=== PATIENT | female | born 1960 | race Caucasian/White ===

== ENCOUNTER 2024-07-06 07:28 | Outpatient (CLI) | payer MEDICARE, SELFPAY ==
--- NOTE | ~2024-07-06 | US_ITS ---
EXAMINATION: US abdomen limited DATE: 07/06/2024 08:11 INDICATION: Other specified abnormal findings of blood chemistry. Abnormal liver function tests. TECHNIQUE: Multiple grayscale and Doppler ultrasound images of the abdomen were obtained. COMPARISON: None FINDINGS: The visualized portions of the head, body, and tail of the pancreas are normal. There is di ffuse hepatic steatosis. There is liver surface nodularity. There is normal flow in main portal vein. The gallbladder is normal in size. No gallstones or gallbladder wall thickening. There is no sonogra phic Flynn sign. The common duct is normal and measures 4 mm. IMPRESSION: 1. Diffuse hepatic steatosis with liver surface nodularity suspicious for cirrhosis. Reviewed, dictated and finalized at location A. ING PRESS OPERATOR IMPRESSION: 1. Diffuse hepatic steatosis with liver surface nodularity suspicious for cirrh osis.
== END 2024-07-06 07:29 | disposition home or self-care (01) ==
LOC: MICIMG 07:28
PROVIDERS: PCP Family Medicine; Visit Provider Family Medicine
DX: R79.89 Other specified abnormal findings of blood chemistry (principal); K76.0 Fatty (change of) liver, not elsewhere classified
CPT/HCPCS: 76705

== ENCOUNTER 2024-07-09 09:38 | Emergency (ER) | payer MEDICARE, SELFPAY ==
--- NOTE | 2024-07-09 09:39 | ED_ITS ---
HPI - URI/Sore Throat General Chief Complaint: Upper Respiratory Infection Stated Complaint: Sinus Time Seen by Provider: 07/09/24 09:38 Source: patient Mode of arrival: ambulatory Limitations: no limitations History of Present Illness HPI Narrative: Shirley is a 63-year-old female patient presenting to the clinic today with complaints of sinus congestion, cough, sore throat x5 days. She reports no known fever or chills. Denies any chest pain or shortness of breath. MD elicited complaint: cough, sore throat and nasal congestion Related Data Home Medications ?Medication ?Instructions ?Recorded ?Confirmed ?Last Taken ?Type levothyroxine 25 mcg tablet 25 mcg PO DAILY 06/21/24 06/21/24 Unknown History lisinopril 20 mg tablet 20 mg PO DAILY 06/21/24 06/21/24 Unknown History meclizine 12.5 mg tablet 12.5 mg PO TID PRN 06/21/24 06/21/24 Unknown History omeprazole 40 mg capsule,delayed 40 mg PO DAILY 06/21/24 06/21/24 Unknown History release paroxetine HCl 30 mg tablet 30 mg PO DAILY 06/21/24 06/21/24 Unknown History Allergies Allergy/AdvReac Type Severity Reaction Status Date / Time No Known Allergies Allergy Verified 07/09/24 09:43 Review of Systems Review of Systems: Pertinent positives per HPI. Patient denies any fever, chills, rash, headache, visual changes, dizziness, shortness of breath, chest pain, palpitations, nausea, vomiting, diarrhea, constipation, abdominal pain, or any urinary issues. [facility] Surgical History Surgical History Hx of section 1984, 1988, 1991 Family History Family History Mother Cerebrovascular accident Grandparent Cerebrovascular accident Diabetes mellitus Social History Social History Smoking status: Never smoker Alcohol intake: current Alcohol use details: 1-4 per week Substance use: never Do You Feel Safe in your Home?: Yes Lack of Transportation: No Lack of Food: Never True Current Housing: I Have Housing Concerned About Future Housing: No Difficulty Paying Gas/Electric Bills: No Difficulty Paying for Meds: No Currently Unemployed: No Education: Bachelor's Degree Difficulty w/ Childcare or Family Care: No Agree to blood products: Yes Comments At the time of my signature, I reviewed and agree with the nursing past medical, surgical, social, and family history. There is no relevant family history pertinent to the patient complaint. Exam 2 Narrative: General: Well-developed, well nourished, in no apparent distress Head: Normocephalic, atraumatic Eyes: Pupils equally round and reactive to light bilaterally, EOM intact, sclera and conjunctive clear, no discharge, lids normal Ears: TMs intact and congested, ear canals clear, no drainage, grossly hearing normal. Nose: Nares patent, clear nasal discharge, no inflammation, no sinus tenderness. Mouth: Oral pharynx without lesions or masses, good dentition, MMM. Postnasal drip Neck: Supple, trachea midline, no enlargement of anterior or posterior cervical nodes, no thyroid masses or goiter palpable. Cardio: Regular rate and rhythm, s1 and s2 normal, no murmur appreciated. Resp: Diminished in the bases otherwise clear, no rhonchi, rales, wheezing or rubs Course Course Emergency Course: Portions of this record may have been created with voice recognition software. Level of Care: Express Care Visit Vital Signs Vital signs: Vital signs reviewed MDM - URI/Sore Throat MDM Narrative Medical decision making narrative: At the time of visit patient is resting comfortably on the exam table. Patient appears to be nontoxic. Plan: I suspect patient has URI with cough and congestion. Prescription for prednisone and albuterol inhaler was sent to the pharmacy. Supportive measures were discussed with the patient and they voiced understanding discharge instructions and agrees to treatment plan. Return precautions reviewed Differential Diagnosis Differential diagnosis: Likely upper respiratory infection, otitis media, sinusitis, viral infection, bronchitis, influenza, pharyngitis and other (COVID) Discharge Plan Discharge Clinical Impression: Upper respiratory infection with cough and congestion Patient Disposition: Home, Self-Care Condition: Stable Instructions: Antibiotic Form, Cold Symptoms (ED) Additional Instructions: Take prescription medications only as prescribed-prednisone and albuterol inhaler Increase fluids and stay well hydrated Tylenol/motrin for pain/fever Flonase and OTC antihistamines as directed Vicks vapor rub to open sinuses Sinus rinses for congestion Cepacol spray, cough drops, throat lozenges, warm tea with honey/lemon, gargle salt water to soothe throat BRAT diet for diarrhea Clear liquids x 24 hours then advance as tolerated for nausea/vomiting Go to the ED if you develop a worsening in your condition- high fever not controlled by Tylenol or Motrin, dehydration, weakness, lethargy, shortness of breath, or chest pain. Follow up with your PCP in 3-5 days if symptoms persist. Patient Language: Lithuanian Prescriptions: New prednisone 20 mg tablet 40 mg PO DAILY 5 Days Qty: 10 0RF albuterol sulfate 90 mcg/actuation HFA aerosol inhaler 2 puff inhalation Q4-6H PRN (Reason: shortness of breath or wheezing) 30 Days Qty: 8.5 0RF No Action lisinopril 20 mg tablet 20 mg PO DAILY levothyroxine 25 mcg tablet 25 mcg PO DAILY omeprazole 40 mg capsule,delayed release(DR/EC) 40 mg PO DAILY paroxetine HCl 30 mg tablet 30 mg PO DAILY meclizine 12.5 mg tablet 12.5 mg PO TID PRN ramelteon 8 mg tablet 8 mg PO QHS PRN (Reason: sleep) Qty: 30 2RF atorvastatin 20 mg tablet 20 mg PO DAILY Qty: 90 1RF Follow-up/Referrals: Vandana Serrato DO [Primary Care Provider] - Time of Disposition: 09:51 Quality NIHSS Nursing Documentation ED NIHSS nursing documentation: reviewed/agree
[2024-07-09 09:46] VITALS: BP 141/89; PULSE 96; RESP 16; TEMP 36.7; O2SAT 99
== END 2024-07-09 09:58 | disposition home or self-care (01) ==
PROVIDERS: Emergency Provider Nurse Practitioner Family; PCP Family Medicine
DX: J06.9 Acute upper respiratory infection, unspecified (principal)
CPT/HCPCS: 99213; G0463

== ENCOUNTER 2024-12-10 07:35 | Outpatient (CLI) | payer MEDICARE, SELFPAY ==
--- NOTE | ~2024-12-10 | US_ITS ---
Limited Abdominal Sonogram: Real-time sonographic imaging of the right upper quadrant was performed. Clinical History: Cirrhosis Findings: The liver appears echogenic, with no evidence of mass lesion or bile duct dilatation. Main portal vein demonstrates normal direction of flow. The gallbladder is partially distended, and appea rs normal with no evidence of gallstone or wall thickening. The common bile duct measures 4 mm. The visualized pancreas, aorta, and IVC are unremarkable. Impression: Diffuse fatty infiltration of liver. Reviewed, dictated and finalized at location M. Impression: Diffuse fatty infiltration of liver.
== END 2024-12-10 07:36 | disposition home or self-care (01) ==
PROVIDERS: PCP Family Medicine; Visit Provider Nurse Practitioner Family
DX: K74.60 Unspecified cirrhosis of liver (principal); R79.89 Other specified abnormal findings of blood chemistry; K76.0 Fatty (change of) liver, not elsewhere classified
CPT/HCPCS: 76705

== ENCOUNTER 2025-02-09 00:17 | Day surgery (SDC) | payer MEDICARE, SELFPAY ==
[2025-01-25 09:14] VITALS: BMI 23.1
[2025-02-09 11:43] VITALS: BP 101/68; PULSE 80; RESP 16; TEMP 36; O2SAT 100; BMI 23.1
[2025-02-09] MEDS: LACTATED RINGERS 1,000 ML 150 ML IV CONT (11:56)
--- NOTE | 2025-02-09 12:45 | P.PNAN_ITS ---
Anes - Initial Pre Proc Eval Procedure: Operation Date: 02/09/25 13:00 Proposed Procedures p Esophagogastroduodenoscopy - Tawanda Palacios MD Date/Time: 02/09/25 12:45 Surgeon: Tawanda Palacios MD Pre Op Diagnosis: Gastro-esophageal reflux disease without esophagit Patient Data Age: 64 Gender: F Height: 1.68 m Weight: 65.1 kg Last Vital Signs Temp 96.8 F L 02/09/25 11:43 Pulse 80 02/09/25 11:43 Resp 16 02/09/25 11:43 BP 101/68 02/09/25 11:43 Pulse Ox 100 02/09/25 11:43 O2 Del Method Room Air 02/09/25 11:43 Allergies Allergy/AdvReac Type Severity Reaction Status Date / Time No Known Allergies Allergy Verified 02/09/25 11:42 Home Medications ?Medication ?Instructions ?Recorded ?Confirmed ?Type levothyroxine 25 mcg tablet 25 mcg PO DAILY 06/21/24 02/09/25 History lisinopril 20 mg tablet 20 mg PO DAILY 06/21/24 02/09/25 History omeprazole 40 mg capsule,delayed 40 mg PO DAILY 06/21/24 02/09/25 History release paroxetine HCl 30 mg tablet 30 mg PO DAILY 06/21/24 02/09/25 History atorvastatin 20 mg tablet 20 mg PO DAILY #90 tabs 06/24/24 02/09/25 Rx valacyclovir 1 gram tablet 1,000 mg PO Q12H 10 days #20 tabs 09/20/24 01/25/25 Rx hydroxyzine HCl 50 mg tablet See Rx Instructions .Route 12/24/24 02/09/25 Rx .COMPLEX #30 tabs Patient hx anesthesia problems: none Family hx anesthesia problems: none Results Review: All pre-operative results and documents have been reviewed as part of the pre- operative evaluation. [facility] Past Medical History Medical History (Updated 11/15/24 @ 11:37 by LUIS Reed) Cirrhosis BMI 26.0-26.9,adult Depression with anxiety History of colon polyps Encounter for screening colonoscopy GERD (gastroesophageal reflux disease) Surgical History Surgical History Hx of section 1984, 1988, 1991 Family History Family History Mother Cerebrovascular accident Grandparent Cerebrovascular accident Diabetes mellitus Father No problems noted. Sibling No problems noted. 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 Informed Consent: The patient's anesthetic plan and its attendant risks and benefits were discussed with the patient/family/POA. Questions were solicited and answers provided to the satisfaction of the patient/family/POA.
--- NOTE | 2025-02-09 12:59 | PM.HPGS ---
History of Present Illness History of Present Illness Consent: Risks, benefits, and alternatives have been discussed and questions answered. Patient agrees to proceed with procedure. Chief complaint: Gastro-esophageal reflux disease without esophagit Narrative: Ester James is a 64 year old female here for first EGD, h/o gerd and cirrhosis Review of Systems Review of Systems: All systems reviewed & are unremarkable except as noted in HPI and below PMFSH Past Medical History Medical History (Updated 11/15/24 @ 11:37 by LUIS Reed) Cirrhosis BMI 26.0-26.9,adult Depression with anxiety History of colon polyps Encounter for screening colonoscopy GERD (gastroesophageal reflux disease) Surgical History Surgical History Hx of section 1984, 1988, 1991 Family History Family History Mother Cerebrovascular accident Grandparent Cerebrovascular accident Diabetes mellitus Father No problems noted. Sibling No problems noted. 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 Agree to blood products: Yes Meds Home Medications and Allergies Home Medications ?Medication ?Instructions ?Recorded ?Confirmed ?Type levothyroxine 25 mcg tablet 25 mcg PO DAILY 06/21/24 02/09/25 History lisinopril 20 mg tablet 20 mg PO DAILY 06/21/24 02/09/25 History omeprazole 40 mg capsule,delayed 40 mg PO DAILY 06/21/24 02/09/25 History release paroxetine HCl 30 mg tablet 30 mg PO DAILY 06/21/24 02/09/25 History atorvastatin 20 mg tablet 20 mg PO DAILY #90 tabs 06/24/24 02/09/25 Rx valacyclovir 1 gram tablet 1,000 mg PO Q12H 10 days #20 tabs 09/20/24 01/25/25 Rx hydroxyzine HCl 50 mg tablet See Rx Instructions .Route 12/24/24 02/09/25 Rx .COMPLEX #30 tabs Allergies Allergy/AdvReac Type Severity Reaction Status Date / Time No Known Allergies Allergy Verified 02/09/25 11:42 Vital Signs Vital Signs - 24 hr 02/09/25 11:43 Temperature 96.8 F L Pulse Rate 80 Respiratory Rate 16 Blood Pressure 101/68 Pulse Oximetry 100 Oxygen Delivery Room Air Exam Const: General: comfortable and no acute distress HENMT: Face/Nose/Sinus: Normal nares present Eyes: General: appearance normal, both eyes and all related structures Neck: Neck: no JVD Resp: Auscultation: clear to auscultation bilaterally Cardio: Rate: regular rate Rhythm: regular rhythm GI: Inspection: non-distended GI Palp: Yes Soft to palpation Skin: General skin exam: normal color Neuro: General: gait normal Speech: normal speech Extrem: General: normal to inspection Psych: Mental Status: mental status grossly normal Assessment and Plan Assessment and plan (1) GERD (gastroesophageal reflux disease): Code(s): K21.9 - Gastro-esophageal reflux disease without esophagitis Status: Acute Assessment and Plan: egd (2) Cirrhosis: Code(s): K74.60 - Unspecified cirrhosis of liver Status: Acute
--- NOTE | 2025-02-09 13:07 | S_PTH ---
PATIENT: Ester James LOC: [facility]#:[id number] AGE/SX: 64/F ROOM: RE02/09/[address]: Tawanda Palacios MD : 1960 BED: DIS: 02/09/2025 SPEC #: [id number] RECD: 02/09/25 14:18 STATUS: MOHSEN REMegan #: [id number] ARACELIS: 02/09/25 13:[address]: Tawanda Palacios DEPT: [facility] Surgical RECD BY: Guerita Rhodes ENTERED: 02/09/25 14:19 SP TYPE: Surgical OTHR DR: Vandana Serrato DO Tissues: A - Gastric Biopsy Procedures: Hematoxylin and Eosin Stain Gross and Microscopic Level 4
[2025-02-09 13:10] VITALS: BP 84/52; PULSE 62; RESP 15; O2SAT 100
[2025-02-09 13:20] VITALS: BP 102/63; PULSE 68; RESP 15; O2SAT 100
[2025-02-09 13:30] VITALS: BP 110/68; PULSE 70; RESP 18; O2SAT 100
== END 2025-02-09 13:43 | disposition home or self-care (01) ==
PROVIDERS: PCP Family Medicine; Referring Provider Nurse Practitioner Family; Visit Provider Internal Medicine Gastroenterology
PROC: 0DJ08ZZ Inspection of Upper Intestinal Tract, Via Natural or Artificial Opening Endoscopic (ICD-10-PCS; CPT 43239; principal; 2025-02-09 13:00)
DX: K21.9 Gastro-esophageal reflux disease without esophagitis (principal); K44.9 Diaphragmatic hernia without obstruction or gangrene; K74.60 Unspecified cirrhosis of liver; F41.8 Other specified anxiety disorders; Z98.890 Other specified postprocedural states; Z86.0100 Personal history of colon polyps, unspecified
CPT/HCPCS: 43239; 88305; J2003; J2704; J7120